=== PATIENT | female | born 1945 | race Caucasian/White ===

== ENCOUNTER → 2021-05-24 13:22 | Outpatient (CLI) | payer OTHER, MEDICARE, SELFPAY ==
[2021-05-24 13:37] LABS: Blood Urea Nitrogen 14 mg/dl (7-17); Estimated Glomerular Filt Rate 70 ml/min (>60); GFR (African American) 85 ML/MIN (>60)
== END ==
PROVIDERS: Visit Provider Physician Assistant
DX: Z01.812 Encounter for preprocedural laboratory examination (principal)
CPT/HCPCS: 36415; 82565; 84520

== ENCOUNTER → 2021-05-31 11:12 | Outpatient (CLI) | payer BC, MEDICARE, SELFPAY ==
--- NOTE | 2021-05-31 11:12 | CA_ITS ---
APPROVED REPORT EXAM: Comprehensive 2D, Doppler, and color-flow Echocardiogram Vehicle [employer] Manager: Octavia Brown CRT Ht: 5 ft 8 in Wt: 134lbs BSA: 1.72 BP: 127/64 mmHg Indications: Abnormal ECG, Shortness of Breath, Diabetes, Hyperlipidemia, Hypertension/HDD 2D Dimensions LVOT 1.98 cm (M/F) 1.5-2.5 LA Volume 25.00 mL LA Volume Index 14.50 mL/m2 (M/F) 16-34 M-Mode Dimensions LA Diam 3.47 cm (1.9-4.0) Ao Diam 3.34 cm (2.0-3.7) TAPSE 1.72 (<1.7) LV Diastology E Decel Time 153.00 (160-240 msec) E/A Ratio 0.76 MED E' 9.40 (< 7 cm/sec) MED A' 11.20 cm/s E'/MED E' Ratio 6.52 (>14) LAT E' 9.70 (<10 cm/sec) LAT A' 11.60 cm/s E/LAT E' Ratio 6.32 (>14) Aortic Valve AI PHT 505.00 ms AO Peak GR. 7.90 mmHg Mitral Valve MV E Max Bj. 61.00 (40-130 cm/s) MV A Velocity 81.00 (40-130 cm/s) E/A Ratio 0.76 MV Decel. Time 153.00 (160-240 ms) MV PHT 45.00 ms Pulmonary Valve PV Peak Velocity 88.00 (50-150 cm/s) Tricuspid Valve TR P. Velocity 192.00 cm/s RAP Estimate 10.00 mmHg RVSP 24.80 mmHg Left Ventricle Left atrium is mildly enlarged, left ventricle is normal size, mild concentric left ventricular hypertrophy, estimated ejection fraction 55% with no regional wall motion abnormality, grade 1 diastolic dysfunction seen without tissue Doppler evidence of raise left atrial pressure. Right Ventricle Right atrium and right ventricle are normal size and contractility. Aortic Valve Aortic valve is minimally thickened and fibrosed there is no aortic stenosis, there is mild aortic insufficiency. Mitral Valve Mitral valve grossly normal, there is trace mitral regurgitation. Tricuspid Valve Tricuspid is grossly normal, there is trace tricuspid regurgitation, tricuspid regurgitation jet velocity is inadequate for calculation of the right ventricular systolic pressure. Pulmonic Valve Pulmonic valve is poorly visualized. Great Vessels Aortic root is normal size. Inferior vena cava is poorly visualized. Pericardium No significant pericardial effusion. Conclusion 1. Mildly enlarged left atrium, normal left ventricular size, mild concentric left ventricular hypertrophy, estimated ejection fraction 55% with no regional wall motion abnormality, grade 1 diastolic dysfunction seen without tissue Doppler evidence of raise left atrial pressure. 2. Mild aortic, trace mitral and tricuspid regurgitation. 3. No significant pericardial effusion noted. Electronically signed by : Blane Gill MD 05/31/2021 20:42:31
--- NOTE | 2021-05-31 11:12 | CA_ITS ---
APPROVED REPORT Exam: Pharmacologic Technologist: Lucia Cervantes, Ht: 5 ft 8 in Wt: 134 lbs BSA: 1.72 m2 HR: 90 bpm BP: 167/78 mmHg Medical History Medications: Aspirin,,,,, Buspirone,,,,, Benazepril,,,,, Albuterol,,,,, Xyzal,,,,, Sertaline,,,,, Metformin ER,,,,, Vitamin C, D3,,,,, LUbiprostone,,,,, GIlimepiride,,,,, Magnesium Chloride ER,,,,, Oxempic,,,,, Stress Test Details Test: LEXISCAN HR Resting HR: 95 bpm Max Heart Rate (APMHR): 147 bpm Max HR Achieved: 109 bpm Target HR (85% APMHR): 124 bpm % of APMHR: 74 Recovery HR: 95 bpm BP Resting BP: 167/78 mmHg Max BP: 167/78 mmHg Recovery BP: 146.0/68.0 mmHg ECG Resting ECG: NSR, 1 degree AVB, rightward axis. Clinical Exercise duration: 04:00 min Highest Stage Achieved: Stress ECG Conclusion Symptoms: None Arrythmias/Ectopy: None ST-T Changes: Less than 1.[address] depression in lead V3 and 0.5mm in lead V4. Conclusion: Non-diagnostic Lexiscan stress. Myoview images reported separately. Electronically signed by : Blane Gill MD 05/31/2021 18:51:27
--- NOTE | 2021-05-31 12:11 | XR_ITS ---
FINAL REPORT CLINICAL HISTORY: dyspnea FINDINGS: TWO VIEWS OF THE CHEST The heart is normal in size. The mediastinum is unremarkable. There is mild biapical scarring. The lungs are otherwise clear. There is no pneumothorax. Mild degenerative changes are present. IMPRESSION: No acute cardiopulmonary process. Reviewed, Interpreted and Dictated by Xavi Del Angel III, MD Transcribed by Magdalena Curiel Authenticated by Xavi Del Angel III, MD on 05/31/2021 01:53:20 PM [facility]
--- NOTE | 2021-05-31 12:18 | NM_ITS ---
APPROVED REPORT Exam: Nuclear Stress Test Indication: Chest pain, SOB, HTN, DM, Family history Patient Location: Outpatient Stress Tech: Lucia Del Angel PR Tech:Lisa Hull, ARRT, RT (R)(N) Ht: 5 ft 8 in Wt: 134 lbs Bra Size: 34B HR: 95 bpm BP: 167/78 mmHg BSA: 1.72 m2 BMI: 20.3 History: Chest pain, SOB, HTN, DM, Family history Procedure: Patient received a 0.4 mg of intravenous Lexiscan, resting heart rate 95 bpm, resting blood pressure 167/78 mmHg, with Lexiscan maximum heart rate achived was 109 bpm which is Less than 85 % of the maximum predicted heart rate and blood pressure was 167/78 mmHg. With Lexiscan, patient denied any complaint of chest pain. Electrocardiogram Resting electrocardiogram showed sinus rhythm, with Lexiscan there is less than 1.[address] segment depression noted from the baseline EKG. The EKG portion of the Lexiscan is nondiagnostic. Cardiac Stress and Resting SPECT Images: Cardiac Stress and Resting SPECT images were obtained using technetium 99m Myoview 32.3 mCi stress and 10.45 mCi at rest. Gated SPECT for analysis of segmental wall motion and calculation of ejection fraction also done. Cardiac stress and resting SPECT images show uniform myocardial activity without segmental perfusion abnormality, computer derived ejection fraction is 64% with no regional wall motion abnormality, right ventricle is normal size and contractility. Conclusion: 1. The EKG portion of the Lexiscan is nondiagnostic. 2. No scintigraphic evidence of reversible ischemia seen, computer derived ejection fraction is 64% with no regional wall motion abnormality, right ventricle is normal size and contractility. 3. Normal Lexiscan Myoview study. Electronically signed by : Blane Gill MD 05/31/2021 18:54:24
--- NOTE | 2021-05-31 13:35 | HMH.ITSHM ---
Current Home Medications as stated by this patient Joycelyn Jama or sales representative business courses. []VITAMIN E VITAMIN B SERTRALINE SEMAGLUTIDE METFORMIN MAGNESIUM LUPIPROSTONE LEVOCETIRIZINE GLIMEPIRIDE VITAMIN D3 BUSPIRONE BENAZEPRIL ASA VITAMIN C ALBUTEROL
== END ==
PROVIDERS: PCP Internal Medicine; Visit Provider Physician Assistant
DX: I51.89 Other ill-defined heart diseases (principal); E11.9 Type 2 diabetes mellitus without complications; R94.31 Abnormal electrocardiogram [ECG] [EKG]; R06.00 Dyspnea, unspecified; I10 Essential (primary) hypertension; J43.8 Other emphysema; E78.4 Other hyperlipidemia
CPT/HCPCS: 71046; 78452; 93017; 93306; A9540; J2785